=== PATIENT | male | born 1975 | race Caucasian/White ===

== ENCOUNTER 2019-01-23 12:01 | Emergency (ER) | payer SELFPAY ==
[2019-01-23 12:09] VITALS: BMI 25.0
[2019-01-23] MEDS ORDERED: CLINDAMYCIN 600MG PREMIX IVPB 600 MG/50 ML BAG IVPB ONE (13:25)
[2019-01-23] MEDS ORDERED: SODIUM CHLORIDE 1,000 ML IV STA (13:25)
[2019-01-23] MEDS ORDERED: KETOROLAC TROMETHAMINE 30 MG/1 ML VIAL IVPUSH ONE (13:26)
[2019-01-23] MEDS ORDERED: ONDANSETRON *ODT* 4 MG TABLET ONE (13:40)
[2019-01-23] MEDS ORDERED: KETOROLAC TROMETHAMINE 30 MG/1 ML VIAL ONE (13:40)
[2019-01-23 14:14] LABS: BASO % 0.2 % (0-2.0); EOS % 1.4 % (0-4.5); HEMATOCRIT 44.8 % (35.4-49); LYMPH % 3.6 % (8-40); MCH 32.3 pg (25.7-33.7); MCHC 33.5 g/dl (32.0-35.9); MEAN CELL VOLUME 96.4 fl (80-96); MEAN PLT VOLUME 7.1 fl (7.5-11.1); MONO % 7.4 % (3.8-10.2); NEUT % 87.4 % (42.8-82.8); PLATELET COUNT 315 K/MM3 (134-434); RBC 4.65 M/mm3 (4.00-5.60); RDW 14.5 % (11.9-15.9); WHITE BLOOD COUNT 11.8 K/mm3 (4.0-10.0)
--- NOTE | 2019-01-23 14:15 | PDOC ---
History of Present Illness - General Chief Complaint: Abscess Boil Stated Complaint: ABCESS ON HEAD Time Seen by Provider: 01/23/19 12:24 History Source: Patient - History of Present Illness Severity: Yes: severe Past History - Past Medical History Allergies/Adverse Reactions: Allergies Allergy/AdvReac Type Severity Reaction Status Date / Time No Known Allergies Allergy Verified 01/23/19 12:09 Home Medications: Ambulatory Orders Clindamycin [Cleocin -] 300 mg PO Q6HPO #28 capsule 01/23/19 Ibuprofen [Motrin -] 800 mg PO Q6H #30 tablet 01/23/19 Mupirocin Ointment [Bactroban] 1 applic TP TID #1 tube 01/23/19 COPD: No Hypercholesterolemia: Yes - Psycho Social/Smoking Cessation Hx Smoking History: Never smoked Review of Systems - Review of Systems Constitutional: Yes: Chills, Fever, Malaise Integumentary: Yes: Erythema *Physical Exam - Vital Signs Last Vital Signs Temp Pulse Resp BP Pulse Ox 98 F 99 H 18 92/59 L 99 01/23/19 12:06 01/23/19 12:06 01/23/19 12:06 01/23/19 12:06 01/23/19 12:06 - Physical Exam General Appearance: Yes: Appropriately Dressed, Mild Distress HEENT: positive: Normal Voice Neck: positive: Supple Integumentary: positive: Dry, Warm, Other (erythematous papules and pustules mostly lcolated to frontal and L parietal scalp w/ significant ttp, no abscess seen or palpated) Neurologic: positive: Fully Oriented, Alert, Normal Mood/Affect ED Treatment Course - LABORATORY CBC & Chemistry Diagram: 01/23/19 13:57 01/23/19 13:57 Medical Decision Making - Medical Decision Making 01/23/19 14:06 43-year-old male, denies any past medical history, here with severe scalp pain, redness and noticed some purulent discharge over the past week. No trauma or obvious inciting factors. No history of same. Had subjective fever and chills last night. see exam Scalp cellulitis, possibly 2/2 folliculitis vs less likely impetigo Non-toxic aline but hypotensive -IVF -IV abx -pain control -labs -CTH r/o extension of infection as d/w Dr Kitchen 01/23/19 15:39 Mild leukocytosis to 11.8. Creatinine 2.2 with normal K. No history of prior kidney issues. Patient has since been given 1 L of normal saline. CT head negative. Repeat vitals improved. Will dc with po and top abx and have patient follow-up in ED for reassessment in 2 days as d/w Dr Kitchen Discharge - Discharge Information Problems reviewed: Yes Clinical Impression/Diagnosis: Cellulitis of scalp, MARCUS (acute kidney injury) Condition: Improved Disposition: HOME - Additional Discharge Information Prescriptions: Clindamycin [Cleocin -] 300 mg PO Q6HPO #28 capsule Ibuprofen [Motrin -] 800 mg PO Q6H #30 tablet Mupirocin Ointment [Bactroban] 1 applic TP TID #1 tube - Follow up/Referral - Patient Discharge Instructions Patient Printed Discharge Instructions: Cellulitis Additional Instructions: Take medications as prescribed and return to ER in 2 days for reassessment. If symptoms worsen prior to then, return to ER immediately Your kidney test was minimally elevated today to 2.2 today which may be from dehydration and most likely may improve with IV fluids we gave you Continue to hydrate yourself and follow up with your PMD - Post Discharge Activity Work/Back to School Note: Back to Work
[2019-01-23 14:44] LABS: ALBUMIN 3.7 g/dl (3.4-5.0); BILIRUBIN,TOTAL 0.5 mg/dL (0.2-1); BLOOD UREA NITROGEN 18.5 mg/dL (7-18); CALCIUM 9.2 mg/dL (8.5-10.1); CREATININE 2.2 mg/dL (0.55-1.3); POTASSIUM 4.5 mmol/L (3.5-5.1); TOT PROT 7.4 g/dl (6.4-8.2)
[2019-01-23 15:44] VITALS: BP 107/62; PULSE 88; TEMP 98.8
== END 2019-01-23 15:52 | disposition home or self-care (01) ==
LOC: JERFT 12:01
PROC: 3E03329 Introduction of Other Anti-infective into Peripheral Vein, Percutaneous Approach (ICD-10-PCS; principal; 2019-01-23)
PROC: 3E0333Z Introduction of Anti-inflammatory into Peripheral Vein, Percutaneous Approach (ICD-10-PCS; 2019-01-23)
DX: L03.811 Cellulitis of head [any part, except face] (principal); N17.9 Acute kidney failure, unspecified
CPT/HCPCS: 36415; 70450-TC; 80053; 83605; 85025; 87389; 99282-25; J7030